=== PATIENT | female | born 1950 | race Caucasian/White ===

== ENCOUNTER 2017-09-06 16:04 | Emergency (ER) | payer OTHER, MEDICARE ==
[~2017-09-06] VITALS: Ht 175.3 cm; Wt 72.3 kg
[2017-09-06] MEDS ORDERED: NAPROSYN500 MG PO (18:20)
[2017-09-06 18:30] VITALS: BP 164/72
== END 2017-09-06 18:33 | disposition home or self-care (01) | DRG 552 ==
LOC: ED 16:04
DX: S13.4XXA Sprain of ligaments of cervical spine, initial encounter (principal); S63.92XA Sprain of unspecified part of left wrist and hand, initial encounter; F41.9 Anxiety disorder, unspecified; R00.0 Tachycardia, unspecified; V49.49XA Driver injured in collision with other motor vehicles in traffic accident, initial encounter; Y92.414 Local residential or business street as the place of occurrence of the external cause